=== PATIENT | female | born 1975 | race Caucasian/White ===

== ENCOUNTER → 2024-06-10 01:51 | Outpatient (CLI) | payer MEDICARE, SELFPAY ==
--- NOTE | 2024-06-10 | ETT_ITS ---
APPROVED REPORT Exam: Exercise Treadmill Patient Location: Out-Patient Room/Bed: Stress Nurse: Casa Hoff RN and Елена Paul RN Ordering Provider:ALEXI SANTIAGO, Contact Number: [phone] BMI: 33.65 Baseline Rhythm: Sinus Rhythm. Comment: Rare PVC's. Indications: Chest Pain. Medical History Medical History: Family Hx of CAD; Hypertension; Obesity; Asthma. Cardiac Medications: Losartan; Fluticasone; Clonidine; Fluoxetine; Albuterol; Aspirin; Metoprolol; Lo vastatin. Allergies: Morphine; Sulfas; Tetracycline. Cardiac Risk Factors: Family Hx; Hypertension; Obesity; Asthma. Previous Cardiac Procedures: None. Pretest Chest Pain Characteristics: None. Exercise History: Indeterminate. Physical Disabilities: None. Lung Sounds: Clear bilaterally throughout, anterior and posterior. Heart Sounds: S1 and S2 auscultated. Stress Test Details Test: Exercise stress testing was performed using a Remi protocol. Rest Stress HR Resting HR Supine: 68 bpm Max Heart Rate (APMHR): 170 bpm Resting HR Standin bpm Target HR (85% APMHR): 145 bpm Max HR Achieved: 146 bpm % of APMHR: 86 Recovery HR: 80 bpm HR response to stress: Normal HR response to stress. BP Resting BP Supine: 138/82 mmHg Resting BP Standin/82 mmHg Max BP: 210/70 mmHg Recovery BP: 142/70 mmHg BP response to stress: Normal blood pressure response to stress. ECG Resting ECG: Sinus Rhythm. Ectopy: Rare PVC's. Stress ECG: Sinus Tachycardia. ST Change: No significant ST segment changes noted. Arrhythmia: Occasional PVC's. Recovery ECG: Sinus Rhythm. Recovery ST Change: No significant ST segment changes noted. Recovery Arrhythmia: None. Clinical Reason for Termination: Target HR Achieved; Dyspnea. Stress Symptoms: Dyspnea. Exercise duration: 04 min07 sec Highest Stage Reached: Stage 2: 2.5 mph at 12% grade. Exercise capacity: 5.97 METs Angina Score: None Faust Treadmill Score: 3.7 Rate Pressure Product: [id number] Stress ECG Conclusion 1. Resting electrocardiogram was normal 2. Patient exercised on the Remi protocol and completed a workload of 6 METS 3. Normal heart rate and blood pressure response to exercise. The patient achieved 86% of predicted heart rate for age 4. There was no electrocardiographic evidence of myocardial ischemia 5. Occasional PVCs were seen Faust Treadmill Score is 3.7 which is Moderate risk. Stress Test Summary STAGE Time (mins) Speed (mph) Grade (%) HR BP SpO2 SYMPTOMS METS Supine 68 138/82 97 Standing 67 138/82 98 1 3 1.7 10 120 188/84 94 4.5 2 6 2.5 12 146 94 Pt. complaining of moderate SOB. 7 1 min recovery 117 210/70 98 Pt. complaining of mild SOB. 3 min recovery 80 160/70 98 Pt. complaining of mild SOB. 6 min recovery 80 142/70 98 Pt. denies any SOB. Pt. was conversing pleasantly with nursing staff upon leaving the Stress Lab. Pt. left ambulatory in no apparent distress.
== END ==
PROVIDERS: PCP Internal Medicine; Visit Provider Internal Medicine
DX: R07.89 Other chest pain (principal)
CPT/HCPCS: 93016; 93018; 93017